=== PATIENT | female | born 1985 | race Caucasian/White ===

== ENCOUNTER 2016-09-16 09:00 | Emergency (ER) | payer OTHER ==
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
[2016-09-16] MEDS ORDERED: BUTALB/APAP/CAFF 50-325-40MG TAB PO STA (10:49)
[2016-09-16 11:37] VITALS: BP 121/56; PULSE 72; RESP 18; TEMP 98
== END 2016-09-16 11:39 | disposition home or self-care (01) ==
LOC: EC 09:00
DX: S06.0X9A Concussion with loss of consciousness of unspecified duration, initial encounter (principal); Y04.8XXA Assault by other bodily force, initial encounter; M79.7 Fibromyalgia; F41.9 Anxiety disorder, unspecified; F32.9 Major depressive disorder, single episode, unspecified; Z79.899 Other long term (current) drug therapy; Z88.5 Allergy status to narcotic agent; F43.10 Post-traumatic stress disorder, unspecified; F17.200 Nicotine dependence, unspecified, uncomplicated
CPT/HCPCS: 70450; 70486; 99283

== ENCOUNTER 2017-03-12 11:23 | Emergency (ER) | payer OTHER ==
[2017-03-12 11:33] VITALS: BP 139/64; PULSE 83; RESP 20; TEMP 98.1
[2017-03-12] MEDS ORDERED: IBUPROFEN 600 MG TAB PO STA (11:55)
--- NOTE | 2017-03-12 11:58 | ED ---
Wound/Laceration HPI - General Chief Complaint: Wound/Laceration Stated Complaint: laceration Time Seen by Provider: 03/12/17 11:51 Source: patient, RN notes reviewed Mode of arrival: ambulatory Limitations: no limitations - History of Present Illness Initial Comments: 31 yo female presents emergency Department chief complaint of right middle finger laceration. Patient states she cut herself yesterday on a punch box tender. Patient states she surgery on her tetanus. Patient states that she has having pain to the finger today she is wondering if she can get something for the pain. Patient states she tried Motrin this morning and it did not seem to improve her symptoms. Patient denies any fever chills cough cold Raynaud's with this. Patient denies any nausea vomiting. Patient denies any other injury from the incident. Patient denies any recent fever, chills, shortness of breath, chest pain, back pain, abdominal pain, nausea vomiting, numbness or tingling, dysuria or hematuria, constipation or diarrhea, headaches or visual changes, or any other current symptoms. - Related Data Home Medications Medication Instructions Recorded Confirmed Metoprolol Tartrate [Lopressor] 50 mg PO BID 03/12/17 03/12/17 PARoxetine HCL [Paxil] 40 mg PO DAILY 03/12/17 03/12/17 Previous Rx's Medication Instructions Recorded Ibuprofen [Motrin] 600 mg PO Q6HR PRN #20 tab 03/12/17 Allergies Allergy/AdvReac Type Severity Reaction Status Date / Time bee pollen Allergy Severe Swelling Verified 03/12/17 11:52 tramadol Allergy Unknown Verified 03/12/17 11:52 Review of Systems ROS Statement: Those systems with pertinent positive or pertinent negative responses have been documented in the HPI. ROS Other: All systems not noted in ROS Statement are negative. Past Medical History Past Medical History: Fibromyalgia, Seizure Disorder History of Any Multi-Drug Resistant Organisms: None Reported Past Surgical History: Section, Hysterectomy, Tubal Ligation Past Psychological History: Anxiety, Depression, PTSD Smoking Status: Former smoker Past Alcohol Use History: None Reported Past Drug Use History: None Reported General Exam - General Exam Comments Initial Comments: General: The patient is awake and alert, in no distress, and does not appear acutely ill. Neck: The neck is supple, there is no tenderness./ Cardiovascular: There is a regular rate and rhythm. No murmur, rub or gallop is appreciated. Respiratory: Lungs are clear to auscultation, respirations are non-labored, breath sounds are equal. No wheezes, stridor, rales, or rhonchi. Musculoskeletal: Sensation intact with 2+ pulses throughout the right upper extremity. Full Range of motion of right hand and right wrist. Less than 2 capillary refill. Patient has a 1 cm superficial laceration to the middle finger on the right hand. No sign of infection. Animal swelling Neurological: CN II-XII intact, There are no obvious motor or sensory deficits. Coordination appears grossly intact. Speech is normal. Skin: Skin is warm and dry and no rashes or lesions are noted. Psychiatric: Normal mood and affect. Limitations: no limitations Course Vital Signs 03/12/17 11:31 Temperature 98.1 F Pulse Rate 83 Respiratory 20 Rate Blood Pressure 139/64 O2 Sat by Pulse 98 Oximetry Medical Decision Making - Medical Decision Making 31-year-old female presents for right hand injury. At this time we discussed cleaning the care. We discussed with the follow-up questions. Patient stated that she understood and she does agree to the plan. This time she will be discharged home. Disposition Clinical Impression: Laceration of right middle finger Disposition: HOME SELF-CARE Condition: Stable Instructions: Laceration (ED) Additional Instructions: Please use medication as discussed. Please follow up with family doctor if symptoms have not improved over the next two days. Please return to the emergency room if your symptoms increase or worsen or for any other concerns. Prescriptions: Ibuprofen [Motrin] 600 mg PO Q6HR PRN #20 tab PRN Reason: Pain Referrals: Anna Cortes MD [Primary Care Provider] - 1-2 days Time of Disposition: 11:58
== END 2017-03-12 12:09 | disposition home or self-care (01) ==
LOC: EC 11:23
DX: S61.212A Laceration without foreign body of right middle finger without damage to nail, initial encounter (principal); F32.9 Major depressive disorder, single episode, unspecified; F41.9 Anxiety disorder, unspecified; Z87.891 Personal history of nicotine dependence; Z79.899 Other long term (current) drug therapy; Z88.6 Allergy status to analgesic agent; Z91.030 Bee allergy status; W26.8XXA Contact with other sharp object(s), not elsewhere classified, initial encounter
CPT/HCPCS: 99282

== ENCOUNTER 2017-04-19 12:22 | Emergency (ER) | payer OTHER ==
[2017-04-19 12:59] VITALS: RESP 18
--- NOTE | 2017-04-19 13:16 | ED ---
General Adult HPI - General Chief complaint: Abdominal Pain Stated complaint: Abd/Back Pain Time Seen by Provider: 04/19/17 13:00 Source: patient, RN notes reviewed Mode of arrival: ambulatory Limitations: no limitations - History of Present Illness Initial comments: This is a 31-year-old female who presents emergency Department complaining that she has lower back pain and some burning with urination. Patient states she has had kidney stones in the past. Patient states started a couple days ago. Patient denies any blood in her urine. Patient denies any upper back pain. Patient denies any abdominal pain she denies any nausea vomiting or diarrhea. Patient denies any fever or chills. - Related Data Home Medications Medication Instructions Recorded Confirmed Metoprolol Tartrate [Lopressor] 50 mg PO BID 03/12/17 04/19/17 PARoxetine HCL [Paxil] 40 mg PO DAILY 03/12/17 04/19/17 clonazePAM [KlonoPIN] 1 mg PO DAILY 04/19/17 04/19/17 Allergies Allergy/AdvReac Type Severity Reaction Status Date / Time bee pollen Allergy Severe Swelling Verified 04/19/17 13:12 tramadol Allergy Unknown Verified 04/19/17 13:12 Review of Systems ROS Statement: Those systems with pertinent positive or pertinent negative responses have been documented in the HPI. ROS Other: All systems not noted in ROS Statement are negative. Past Medical History Past Medical History: Fibromyalgia, Seizure Disorder Additional Past Medical History / Comment(s): kidney stones History of Any Multi-Drug Resistant Organisms: None Reported Past Surgical History: Section, Hysterectomy, Tubal Ligation Past Psychological History: Anxiety, Depression, PTSD Smoking Status: Former smoker Past Alcohol Use History: None Reported Past Drug Use History: None Reported General Exam - General Exam Comments Initial Comments: GENERAL: Patient is well-developed and well-nourished. Patient is nontoxic and well- hydrated and is in mild distress. ENT: Neck is soft and supple. No significant lymphadenopathy is noted. Oropharynx is clear. Moist mucous membranes. Neck has full range of motion without eliciting any pain. EYES: The sclera were anicteric and conjunctiva were pink and moist. Extraocular movements were intact and pupils were equal round and reactive to light. Eyelids were unremarkable. PULMONARY: Unlabored respirations. Good breath sounds bilaterally. No audible rales rhonchi or wheezing was noted. CARDIOVASCULAR: There is a regular rate and rhythm without any murmurs gallops or rubs. ABDOMEN: Soft and nontender with normal bowel sounds. No palpable organomegaly was noted. There is no palpable pulsatile mass. SKIN: Skin is clear with no lesions or rashes and otherwise unremarkable. NEUROLOGIC: Patient is alert and oriented x3. Cranial nerves II through XII are grossly intact. Motor and sensory are also intact. Normal speech, volume and content. Symmetrical smile. MUSCULOSKELETAL: Normal extremities with adequate strength and full range of motion. No lower extremity swelling or edema. No calf tenderness. LYMPHATICS: No significant lymphadenopathy is noted PSYCHIATRIC: Normal psychiatric evaluation. Normal interpersonal interactions appears functionally intact in deals appropriately with others. No signs of depression. No signs of anxiety. Limitations: no limitations Course Vital Signs 04/19/17 12:56 Temperature 98.6 F Pulse Rate 73 Respiratory 18 Rate Blood Pressure 113/68 O2 Sat by Pulse 97 Oximetry Medical Decision Making - Medical Decision Making The patient was sleeping when I awoke her she still complaining of lower back pain - Lab Data Lab Results 04/19/17 Range/Units 13:24 Urine Color Yellow Urine Appearance Cloudy H (Clear) Urine pH 8.0 (5.0-8.0) Ur Specific [place] 1.013 (1.001-1.035) Urine Protein Trace H (Negative) Urine Glucose (UA) Negative (Negative) Urine Ketones Negative (Negative) Urine Blood Negative (Negative) Urine Nitrite Negative (Negative) Urine Bilirubin Negative (Negative) Urine Urobilinogen <2.0 (<2.0) mg/dL Ur Leukocyte Esterase Negative (Negative) Urine RBC 1 (0-5) /hpf Urine WBC 10 H (0-5) /hpf Ur Squamous Epith Cells 17 H (0-4) /hpf Urine Bacteria Occasional H (None) /hpf Urine Mucus Rare H (None) /hpf Disposition Clinical Impression: Lower back pain Disposition: HOME SELF-CARE Condition: Good Instructions: Back Pain (ED) Referrals: Anna Cortes MD [Primary Care Provider] - 1-2 days Time of Disposition: 14:09
[2017-04-19 13:58] LABS: Appearance,Urine Cloudy (Clear); Bacteria,Urine Occasional /hpf; Bilirubin,Urine Negative (Negative); Glucose,Urine (UA) Negative (Negative); Ketones,Urine Negative (Negative); Leukocyte Esterase,Urine Negative (Negative); Mucus,Urine Rare /hpf; Nitrite,Urine Negative (Negative); Particle Count 31755; Protein,Urine Trace (Negative); RBC,Urine 1 /hpf (0-5); Specific Gravity,Urine 1.013 (1.001-1.035); Squamous Epithelial Cell,Urine 17 /hpf (0-4); UA Billing (MACRO vs. MICRO) MICRO; Urobilinogen,Urine <2.0 mg/dL (<2.0); WBC,Urine 10 /hpf (0-5)
[2017-04-19] MEDS ORDERED: KETOROLAC 60 MG/2 ML VIAL IM STA (14:11)
[2017-04-19 14:22] VITALS: BP 107/68; PULSE 71; TEMP 98
== END 2017-04-19 14:20 | disposition home or self-care (01) ==
LOC: EC 12:22
DX: M54.5 Low back pain (principal); G40.909 Epilepsy, unspecified, not intractable, without status epilepticus; F41.9 Anxiety disorder, unspecified; F32.9 Major depressive disorder, single episode, unspecified; F43.10 Post-traumatic stress disorder, unspecified; Z87.442 Personal history of urinary calculi; Z87.891 Personal history of nicotine dependence; Z91.018 Allergy to other foods; Z88.6 Allergy status to analgesic agent; Z79.899 Other long term (current) drug therapy
CPT/HCPCS: 81001; 99284; 96372; J1885

== ENCOUNTER 2017-09-22 19:39 | Emergency (ER) | payer OTHER ==
[2017-09-22 19:50] VITALS: BP 125/78; PULSE 95; RESP 20; TEMP 97.3
--- NOTE | 2017-09-22 20:10 | ED ---
General Adult HPI - General Chief complaint: Back Pain/Injury Stated complaint: Fall Time Seen by Provider: 09/22/17 19:52 Source: patient, RN notes reviewed Mode of arrival: ambulatory Limitations: no limitations - History of Present Illness Initial comments: 31 yo female presents to ER with a chief complaint of tailbone pain. Patient tripped and fell and the ice yesterday. She took Motrin she states she is able to get up and walk and move that if she sits on her bottom hurts worse. Patient denies any head injury. She denies any fever or chills. She states that she was concerned due to the continued pain so she thought that she should be seen. Patient denied any other symptoms at this time.Patient denies any recent fever, chills, shortness of breath, chest pain, back pain, abdominal pain , nausea vomiting, numbness or tingling, dysuria or hematuria, constipation or diarrhea, headaches or visual changes, or any other current symptoms. - Related Data Home Medications Medication Instructions Recorded Confirmed Metoprolol Tartrate [Lopressor] 50 mg PO BID 03/12/17 08/19/17 PARoxetine HCL [Paxil] 40 mg PO DAILY 03/12/17 08/19/17 [place] Carbonate [[place] 450 mg PO DAILY 07/03/17 08/19/17 Carbonate ER] Phenytoin Sodium Extended 100 mg PO TID 07/03/17 08/19/17 [Dilantin] Acetaminophen Tab [Tylenol Tab] 650 mg PO Q4H PRN 08/19/17 08/19/17 Gabapentin 800 mg PO TID 08/19/17 08/19/17 Ibuprofen [Motrin] 600 mg PO Q6HR PRN 08/19/17 08/19/17 Previous Rx's Medication Instructions Recorded Ibuprofen [Motrin] 800 mg PO Q6HR #30 tab 08/19/17 Hydrocodone/Acetaminophen [[place] 1 each PO Q6HR PRN #20 tab 09/22/17 5-325] Allergies Allergy/AdvReac Type Severity Reaction Status Date / Time bee pollen Allergy Severe Swelling Verified 09/22/17 19:50 venom-honey bee Allergy Swelling Verified 09/22/17 19:50 iodine AdvReac Rapid Verified 09/22/17 19:50 Heart Rate tramadol AdvReac INDUCES Verified 09/22/17 19:50 Review of Systems ROS Statement: Those systems with pertinent positive or pertinent negative responses have been documented in the HPI. ROS Other: All systems not noted in ROS Statement are negative. Past Medical History Past Medical History: Fibromyalgia, Seizure Disorder Additional Past Medical History / Comment(s): kidney stones History of Any Multi-Drug Resistant Organisms: None Reported Past Surgical History: Section, Hysterectomy, Tubal Ligation Past Psychological History: Anxiety, Depression, PTSD Smoking Status: Former smoker Past Alcohol Use History: None Reported Past Drug Use History: None Reported General Exam Limitations: no limitations General appearance: alert, in no apparent distress Head exam: Present: atraumatic, normocephalic, normal inspection Neck exam: Present: normal inspection. Absent: tenderness, meningismus, lymphadenopathy Respiratory exam: Present: normal lung sounds bilaterally. Absent: respiratory distress, wheezes, rales, rhonchi, stridor Cardiovascular Exam: Present: regular rate, normal rhythm, normal heart sounds. Absent: systolic murmur, diastolic murmur, rubs, gallop, clicks Extremities exam: Present: normal inspection, full ROM, normal capillary refill. Absent: tenderness, pedal edema, joint swelling, calf tenderness Back exam: Present: normal inspection, full ROM, tenderness (over the sacrum). Absent: paraspinal tenderness, vertebral tenderness, rash noted Neurological exam: Present: alert, oriented X3 Psychiatric exam: Present: normal affect, normal mood Skin exam: Present: warm, dry, intact, normal color. Absent: rash Course Vital Signs 09/22/17 19:48 Temperature 97.3 F L Pulse Rate 95 Respiratory 20 Rate Blood Pressure 125/78 O2 Sat by Pulse 99 Oximetry Medical Decision Making - Medical Decision Making 31-year-old female presents to the emergency department with chief complaint of tailbone pain. At this time x-rays reviewed that does show a fracture. At this time we did discuss follow-up. We discussed return parameters all questions and senior living. Patient stated she understood and she is agreement plan. She will be discharged. - Radiology Data Radiology results: report reviewed, image reviewed Disposition Clinical Impression: Sacral fracture, closed Disposition: HOME SELF-CARE Condition: Stable Instructions: Sacral Fracture (ED) Additional Instructions: Please use medication as discussed. Please follow up with family doctor if symptoms have not improved over the next two days. Please return to the emergency room if your symptoms increase or worsen or for any other concerns. Prescriptions: Hydrocodone/Acetaminophen [[place] 5-325] 1 each PO Q6HR PRN #20 tab PRN Reason: Pain Referrals: Anna Cortes MD [Primary Care Provider] - 1-2 days Time of Disposition: 20:45
[2017-09-22] MEDS ORDERED: HYDROcodone/APAP 5-325MG 1 EACH TAB PO STA (20:33)
--- NOTE | 2017-09-22 20:41 | XR ---
EXAMINATION TYPE: XR sacrum coccyx DATE OF EXAM: 09/22/2017 COMPARISON: NONE HISTORY: Pain TECHNIQUE: 3 views FINDINGS: There is a fracture at the sacrococcygeal junction. There is 1 cm anterior displacement of the distal fragment. The sacroiliac joints appear normal. IMPRESSION: Acute mildly displaced fracture at the sacrococcygeal junction.
== END 2017-09-22 20:51 | disposition home or self-care (01) ==
LOC: EC 19:39
DX: S32.10XA Unspecified fracture of sacrum, initial encounter for closed fracture (principal); G40.909 Epilepsy, unspecified, not intractable, without status epilepticus; F32.9 Major depressive disorder, single episode, unspecified; F41.9 Anxiety disorder, unspecified; Z87.891 Personal history of nicotine dependence; Z79.899 Other long term (current) drug therapy; Z91.030 Bee allergy status; Z88.6 Allergy status to analgesic agent; Z88.8 Allergy status to other drugs, medicaments and biological substances; W00.0XXA Fall on same level due to ice and snow, initial encounter; Y92.89 Other specified places as the place of occurrence of the external cause
CPT/HCPCS: 72220; 99283

== ENCOUNTER 2017-10-14 08:21 | Emergency (ER) | payer OTHER ==
[2017-10-14 08:28] VITALS: BP 131/92; PULSE 95; RESP 18; TEMP 98
--- NOTE | 2017-10-14 08:43 | ED ---
General Adult HPI - General Chief complaint: Back Pain/Injury Stated complaint: Tailbone pain Time Seen by Provider: 10/14/17 08:36 Source: patient, RN notes reviewed Mode of arrival: ambulatory Limitations: no limitations - History of Present Illness Initial comments: Patient is a pleasant 32-year-old female presenting to the emergency Department with sacral pain. Patient does have a history of fall and fracture. 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 Patient requests Tylenol 3 for discomfort. No weakness. No loss of sensation. No loss of control of bowel or bladder. No other area of concern. - Related Data Home Medications Medication Instructions Recorded Confirmed Metoprolol Tartrate [Lopressor] 50 mg PO BID 03/12/17 08/19/17 PARoxetine HCL [Paxil] 40 mg PO DAILY 03/12/17 08/19/17 [place] Carbonate [[place] 450 mg PO DAILY 07/03/17 08/19/17 Carbonate ER] Phenytoin Sodium Extended 100 mg PO TID 07/03/17 08/19/17 [Dilantin] Acetaminophen Tab [Tylenol Tab] 650 mg PO Q4H PRN 08/19/17 08/19/17 Gabapentin 800 mg PO TID 08/19/17 08/19/17 Ibuprofen [Motrin] 600 mg PO Q6HR PRN 08/19/17 08/19/17 Previous Rx's Medication Instructions Recorded Ibuprofen [Motrin] 800 mg PO Q6HR #30 tab 08/19/17 Hydrocodone/Acetaminophen [[place] 1 each PO Q6HR PRN #20 tab 09/22/17 5-325] Acetaminophen-Codeine 300-30mg 2 each PO Q6H PRN #15 tablet 10/14/17 [Tylenol #3] Allergies Allergy/AdvReac Type Severity Reaction Status Date / Time bee pollen Allergy Severe Swelling Verified 10/14/17 08:28 venom-honey bee Allergy Swelling Verified 10/14/17 08:28 iodine AdvReac Rapid Verified 10/14/17 08:28 Heart Rate tramadol AdvReac INDUCES Verified 10/14/17 08:28 Review of Systems ROS Statement: Those systems with pertinent positive or pertinent negative responses have been documented in the HPI. ROS Other: All systems not noted in ROS Statement are negative. Constitutional: Denies: fever Eyes: Denies: eye pain ENT: Denies: ear pain Respiratory: Denies: cough Cardiovascular: Denies: chest pain Endocrine: Denies: fatigue Gastrointestinal: Denies: abdominal pain Genitourinary: Denies: dysuria Musculoskeletal: Reports: other (Tailbone pain) Skin: Denies: rash Neurological: Denies: weakness Past Medical History Past Medical History: Fibromyalgia, Seizure Disorder Additional Past Medical History / Comment(s): kidney stones History of Any Multi-Drug Resistant Organisms: None Reported Past Surgical History: Section, Hysterectomy, Tubal Ligation Past Psychological History: Anxiety, Depression, PTSD Smoking Status: Former smoker Past Alcohol Use History: None Reported Past Drug Use History: None Reported General Exam Limitations: no limitations General appearance: alert, in no apparent distress Head exam: Present: atraumatic Eye exam: Present: normal appearance Respiratory exam: Present: normal lung sounds bilaterally Cardiovascular Exam: Present: regular rate, normal rhythm GI/Abdominal exam: Present: soft. Absent: tenderness Extremities exam: Present: normal inspection Back exam: Present: other (Tenderness over the lower sacrum.) Neurological exam: Present: alert. Absent: motor sensory deficit Psychiatric exam: Present: normal affect, normal mood Skin exam: Present: normal color Course Vital Signs 10/14/17 08:25 Temperature 98.0 F Pulse Rate 95 Respiratory 18 Rate Blood Pressure 131/92 O2 Sat by Pulse 99 Oximetry Disposition Clinical Impression: Sacral pain Disposition: HOME SELF-CARE Condition: Stable Instructions: Sacral Fracture (ED) Additional Instructions: Please follow-up to in the next day or 2 for recheck. Return for increased pain, weakness, loss of sensation, loss of control of bowel or bladder, worsening symptoms or other concerns. Prescriptions: Acetaminophen-Codeine 300-30mg [Tylenol #3] 2 each PO Q6H PRN #15 tablet PRN Reason: Pain Referrals: Anna Cortes MD [Primary Care Provider] - 1-2 days Time of Disposition: 08:43
== END 2017-10-14 08:54 | disposition home or self-care (01) ==
LOC: EC 08:21
DX: M53.3 Sacrococcygeal disorders, not elsewhere classified (principal); G40.909 Epilepsy, unspecified, not intractable, without status epilepticus; F32.9 Major depressive disorder, single episode, unspecified; F41.9 Anxiety disorder, unspecified; F43.10 Post-traumatic stress disorder, unspecified; Z87.891 Personal history of nicotine dependence; Z79.899 Other long term (current) drug therapy; Z91.030 Bee allergy status; Z88.6 Allergy status to analgesic agent; Z88.8 Allergy status to other drugs, medicaments and biological substances
CPT/HCPCS: 99283

== ENCOUNTER 2017-10-20 09:07 | Emergency (ER) | payer OTHER ==
[2017-10-20 09:15] VITALS: BP 128/73; PULSE 83; RESP 18; TEMP 97.5
--- NOTE | 2017-10-20 09:58 | ED ---
General Adult HPI - General Chief complaint: Fall Stated complaint: FALL, BACK/REAR END PAIN Time Seen by Provider: 10/20/17 09:32 Source: patient, RN notes reviewed Mode of arrival: ambulatory Limitations: no limitations - History of Present Illness Initial comments: 32-year-old female presents to the emergency department with a chief complaint of slip and fall. Patient states she broke her tailbone about one month ago and she had another slip and fall today onto her bottom. Patient does admit to some low back pain and terrible pain with this. She denies any loss of bowel or bladder control. She denies any saddle anesthesia. She states that she otherwise is feeling well. They were concerned due to her new pain after the fall that she thought that she should be seen. Patient states she follow-up for or so regarding the fall and they stated there is no procedure that they can do. They deny any other symptoms at this time.Patient denies any recent fever, chills, shortness of breath, chest pain, back pain, abdominal pain, nausea vomiting, numbness or tingling, dysuria or hematuria, constipation or diarrhea, headaches or visual changes, or any other current symptoms. - Related Data Home Medications Medication Instructions Recorded Confirmed Metoprolol Tartrate [Lopressor] 50 mg PO BID 03/12/17 10/20/17 PARoxetine HCL [Paxil] 40 mg PO DAILY 03/12/17 10/20/17 [place] Carbonate [[place] 450 mg PO DAILY 07/03/17 10/20/17 Carbonate ER] Phenytoin Sodium Extended 100 mg PO TID 07/03/17 10/20/17 [Dilantin] Acetaminophen Tab [Tylenol Tab] 650 mg PO Q4H PRN 08/19/17 10/20/17 Gabapentin 800 mg PO TID 08/19/17 10/20/17 Ibuprofen 800 mg PO Q6H PRN 10/14/17 10/20/17 clonazePAM [KlonoPIN] 1 mg PO DAILY PRN 10/14/17 10/20/17 Acetaminophen-Codeine 300-30mg 2 tab PO Q6H PRN 10/20/17 10/20/17 [Tylenol #3] Previous Rx's Medication Instructions Recorded Hydrocodone/Acetaminophen [[place] 1 each PO Q6HR PRN #10 tab 10/20/17 5-325] Allergies Allergy/AdvReac Type Severity Reaction Status Date / Time bee pollen Allergy Severe Swelling Verified 10/20/17 09:38 venom-honey bee Allergy Swelling Verified 10/20/17 09:38 iodine AdvReac Rapid Verified 10/20/17 09:38 Heart Rate tramadol AdvReac INDUCES Verified 10/20/17 09:38 Review of Systems ROS Statement: Those systems with pertinent positive or pertinent negative responses have been documented in the HPI. ROS Other: All systems not noted in ROS Statement are negative. Past Medical History Past Medical History: Fibromyalgia, Seizure Disorder Additional Past Medical History / Comment(s): kidney stones History of Any Multi-Drug Resistant Organisms: None Reported Past Surgical History: Section, Hysterectomy, Tubal Ligation Past Psychological History: Anxiety, Depression, PTSD Smoking Status: Former smoker Past Alcohol Use History: None Reported Past Drug Use History: None Reported General Exam - General Exam Comments Initial Comments: General: The patient is awake and alert, in no distress, and does not appear acutely ill. Eye: Pupils are equal. Ears, nose, mouth and throat: There are moist mucous membranes. Neck: The neck is supple, there is no tenderness . Cardiovascular: There is a regular rate and rhythm. No murmur, rub or gallop is appreciated. Respiratory: Lungs are clear to auscultation, respirations are non-labored, breath sounds are equal. No wheezes, stridor, rales, or rhonchi. Back: There is no tenderness to palpation in the midline thoracic spine. Some tenderness in the lumbar and over the sacrum.. There is no obvious deformity. No rashes noted. Musculoskeletal: Normal ROM, no tenderness, There is no pedal edema. There is no calf tenderness or swelling. Sensation intact. Pulses equal bilaterally 2+. Neurological: CN II-XII intact, There are no obvious motor or sensory deficits. Coordination appears grossly intact. Speech is normal. Skin: Skin is warm and dry and no rashes or lesions are noted. Psychiatric: Cooperative, appropriate mood & affect, normal judgment. Limitations: no limitations Course Vital Signs 10/20/17 09:12 Temperature 97.5 F L Pulse Rate 83 Respiratory 18 Rate Blood Pressure 128/73 O2 Sat by Pulse 97 Oximetry Medical Decision Making - Medical Decision Making 32-year-old female presents for fall with back pain and sacral pain. At this time x-rays reviewed. At this time patient continues to have a fracture present. Unknown if there is a new injury or not. This and we will continue pain medication we discussed continued follow-up. We discussed return parameters all questions. Patient family stated they are in agreement with management of this plan. All questions have been answered. They will be discharged. - Radiology Data Radiology results: report reviewed, image reviewed Disposition Clinical Impression: Fall, Closed coccygeal fracture, Sacral pain Disposition: HOME SELF-CARE Condition: Stable Instructions: Sacral Fracture (ED) Additional Instructions: Please use medication as discussed. Please follow up with family doctor if symptoms have not improved over the next two days. Please return to the emergency room if your symptoms increase or worsen or for any other concerns. Prescriptions: Hydrocodone/Acetaminophen [[place] 5-325] 1 each PO Q6HR PRN #10 tab PRN Reason: Pain Referrals: Anna Cortes MD [Primary Care Provider] - 1-2 days Time of Disposition: 10:17
--- NOTE | 2017-10-20 10:08 | XR ---
EXAM TYPE: LUMBAR SPINE X RAY SERIES COMPARISON: NONE HISTORY: Pain TECHNIQUE: 4 views are submitted. FINDINGS: Alignment is anatomic. The pedicles are intact. The transverse processes are intact. There is no s pondylolysis or spondylolisthesis. Mild hypertrophic change at the thoracolumbar junction. There is marked deformity of the sacrococcygeal levels suspicious for fracture. IMPRESSION: 1. Marked deformity and displacement the osseous structures of the sacrococcygeal junction suspicious for fracture.
--- NOTE | 2017-10-20 10:09 | XR ---
EXAMINATION TYPE: XR sacrum coccyx DATE OF EXAM: 10/20/2017 COMPARISON: NONE HISTORY: Pain Three views are submitted. Sacrum is intact. SI joints are symmetric. Osteitis pubis condensans not ed. Calcification along the acetabulum bilaterally likely related to chronic labral tear. There is di splacement of the coccyx compatible with fracture. IMPRESSION: 1. Findings are compatible with coccygeal fracture with anterior displacement of the distal segments.
== END 2017-10-20 10:29 | disposition home or self-care (01) ==
LOC: EC 09:07
DX: S32.2XXA Fracture of coccyx, initial encounter for closed fracture (principal); M79.7 Fibromyalgia; G40.909 Epilepsy, unspecified, not intractable, without status epilepticus; F32.9 Major depressive disorder, single episode, unspecified; F41.9 Anxiety disorder, unspecified; F43.10 Post-traumatic stress disorder, unspecified; Z87.891 Personal history of nicotine dependence; Z91.048 Other nonmedicinal substance allergy status; Z88.6 Allergy status to analgesic agent; Z91.030 Bee allergy status; Z91.018 Allergy to other foods; Z79.899 Other long term (current) drug therapy; W01.0XXA Fall on same level from slipping, tripping and stumbling without subsequent striking against object, initial encounter
CPT/HCPCS: 72100; 72220; 99283

== ENCOUNTER 2018-01-14 14:36 | Emergency (ER) | payer OTHER ==
[2018-01-14 14:53] VITALS: BP 131/60; PULSE 110; RESP 18; TEMP 98.6
[2018-01-14] MEDS ORDERED: PROPARACAINE 0.5% OPHTH DROPS 15 ML BTL RIGHT EYE STA (15:13)
--- NOTE | 2018-01-14 15:16 | ED ---
General Adult HPI - General Chief complaint: Psychiatric Symptoms Stated complaint: Rt eye Irritation Time Seen by Provider: 01/14/18 14:49 Source: patient, RN notes reviewed Mode of arrival: ambulatory Limitations: no limitations - History of Present Illness Initial comments: 32-year-old female presenting with right eye irritation. Patient was in court yesterday regarding custody of her children who are out of state. She states she cried a lot and was wearing makeup. She developed some puffiness in her right eye as well as some mild pain and irritation. Denies any foreign body sensation. Denies cough or URI symptoms. Denies any other issues with her left eye. No vision changes. Patient also is suicidal secondary to her issue with her children. She states she attempted to step in front of a truck. There is no injury, she was not struck. She has been feeling suicidal and plans to "jump in front of a truck". - Related Data Home Medications Medication Instructions Recorded Confirmed Metoprolol Tartrate [Lopressor] 50 mg PO BID 03/12/17 01/14/18 PARoxetine HCL [Paxil] 40 mg PO DAILY 03/12/17 01/14/18 [place] Carbonate [[place] 450 mg PO BID 07/03/17 01/14/18 Carbonate ER] Gabapentin 800 mg PO TID 08/19/17 01/14/18 Previous Rx's Medication Instructions Recorded Ciprofloxacin Ophth Soln [Cipro 1 drops RIGHT EYE Q4HR #1 bottle 01/14/18 0.3% Ophth Soln] Allergies Allergy/AdvReac Type Severity Reaction Status Date / Time bee pollen Allergy Severe Swelling Verified 01/14/18 14:54 venom-honey bee Allergy Swelling Verified 01/14/18 14:54 iodine AdvReac Rapid Verified 01/14/18 14:54 Heart Rate tramadol AdvReac INDUCES Verified 01/14/18 14:54 Review of Systems ROS Statement: Those systems with pertinent positive or pertinent negative responses have been documented in the HPI. ROS Other: All systems not noted in ROS Statement are negative. Past Medical History Past Medical History: Fibromyalgia, Seizure Disorder Additional Past Medical History / Comment(s): kidney stones History of Any Multi-Drug Resistant Organisms: None Reported Past Surgical History: Section, Hysterectomy, Tubal Ligation Past Psychological History: Anxiety, Depression, PTSD Smoking Status: Current every day smoker Past Alcohol Use History: None Reported Past Drug Use History: Marijuana General Exam Limitations: no limitations General appearance: alert, in no apparent distress Head exam: Present: atraumatic, normocephalic Eye exam: Present: normal appearance, PERRL, EOMI, conjunctival injection, other (Fluorescein does reveal a linear abrasion over the cornea.) ENT exam: Present: normal exam. Absent: normal oropharynx, mucous membranes dry Neck exam: Present: normal inspection. Absent: tenderness, meningismus Respiratory exam: Present: normal lung sounds bilaterally. Absent: respiratory distress, wheezes Cardiovascular Exam: Present: regular rate, normal rhythm GI/Abdominal exam: Present: soft. Absent: distended, tenderness, guarding Rectal exam: Present: deferred Extremities exam: Present: normal inspection, normal capillary refill. Absent: pedal edema Neurological exam: Present: alert, oriented X3, CN II-XII intact Psychiatric exam: Present: depressed, suicidal ideation Skin exam: Present: warm, dry, intact. Absent: cyanosis, diaphoretic Course Vital Signs 01/14/18 14:51 Temperature 98.6 F Pulse Rate 110 H Respiratory 18 Rate Blood Pressure 131/60 O2 Sat by Pulse 98 Oximetry - Reevaluation(s) Reevaluation #1: 01/14/18 15:26 Patient here with complaint of suicidal ideation and right eye irritation. Right eye does have a corneal abrasion. Patient is given ciprofloxacin drops in the emergency department. She will take this medication home and continue treatment of corneal abrasion. Medical Decision Making - Medical Decision Making 32-year-old female presenting with eye irritation, found to have corneal abrasion. Second issue was suicidal ideation. She was evaluated by [facility], they recommend outpatient follow-up at this time. Appointments were made and the patient has a safety plan. I did reevaluate the patient after many mental health and she denies suicidal ideation or plan. She is comfortable with discharge. She will follow up as recommended. She will also take her eyedrops for corneal abrasion as instructed. - Lab Data Lab Results 01/14/18 Range/Units 15:21 Urine Opiates Screen Not Detected (NotDetected) Ur Oxycodone Screen Not Detected (NotDetected) Urine Methadone Screen Not Detected (NotDetected) Ur Propoxyphene Screen Not Detected (NotDetected) Ur Barbiturates Screen Not Detected (NotDetected) U Tricyclic Antidepress Not Detected (NotDetected) Ur Phencyclidine Scrn Not Detected (NotDetected) Ur Amphetamines Screen Not Detected (NotDetected) U Methamphetamines Scrn Not Detected (NotDetected) U Benzodiazepines Scrn Detected H (NotDetected) Urine Cocaine Screen Not Detected (NotDetected) U Marijuana (THC) Screen Detected H (NotDetected) Disposition Clinical Impression: Corneal abrasion, right, Depression Disposition: HOME SELF-CARE Condition: Good Instructions: Depression (ED), Corneal Abrasion (ED) Additional Instructions: Please follow up with community mental health. Prescriptions: Ciprofloxacin Ophth Soln [Cipro 0.3% Ophth Soln] 1 drops RIGHT EYE Q4HR #1 bottle Is patient prescribed a controlled substance at d/c from ED?: No Referrals: Anna Cortes MD [Primary Care Provider] - 1-2 days Belinda Clancy MD [STAFF PHYSICIAN] - 1-2 days Time of Disposition: 18:18
[2018-01-14] MEDS ORDERED: CIPROFLOXACIN 0.3% OPHTH SOLN 5 ML BTL RIGHT EYE STA (15:27)
[2018-01-14 16:00] LABS: Amphetamine Screen,Urine Not Detected (NotDetected); Barbiturate Screen,Urine Not Detected (NotDetected); Benzodiazepines Screen,Urine Detected (NotDetected); Cocaine Screen,Urine Not Detected (NotDetected); Methadone Screen, Urine Not Detected (NotDetected); Opiate Screen,Urine Not Detected (NotDetected); Oxycodone Screen, Urine Not Detected (NotDetected); Phencyclidine Screen,Urine Not Detected (NotDetected); Tricyclic Antidepressant,Urine Not Detected (NotDetected); Urn Cannabinoid Scrn Detected (NotDetected)
[2018-01-14] MEDS ORDERED: DIPH,PERTUS(ACELL)TETVAC-LF 0.5 ML VIAL IM ONE (18:17)
== END 2018-01-14 18:35 | disposition home or self-care (01) ==
LOC: EC 14:36
DX: S05.01XA Injury of conjunctiva and corneal abrasion without foreign body, right eye, initial encounter (principal); F32.9 Major depressive disorder, single episode, unspecified; R45.851 Suicidal ideations; M79.7 Fibromyalgia; G40.909 Epilepsy, unspecified, not intractable, without status epilepticus; F41.9 Anxiety disorder, unspecified; F43.10 Post-traumatic stress disorder, unspecified; F17.200 Nicotine dependence, unspecified, uncomplicated; Z79.899 Other long term (current) drug therapy; Z88.5 Allergy status to narcotic agent; Z91.030 Bee allergy status; Z91.018 Allergy to other foods; Z91.048 Other nonmedicinal substance allergy status; Z87.442 Personal history of urinary calculi; X58.XXXA Exposure to other specified factors, initial encounter
CPT/HCPCS: 80306; 82075; 99284

== ENCOUNTER 2018-06-29 12:11 | Emergency (ER) | payer OTHER ==
[2018-06-29 12:35] VITALS: BP 124/81; PULSE 91; RESP 18; TEMP 97.9
[2018-06-29] MEDS ORDERED: LIDOCAINE 1% INJ 10MG/ML (20 ML MDV) SQ STA (13:34)
--- NOTE | 2018-06-29 13:47 | ED ---
General Adult HPI - General Chief complaint: Skin/Abscess/Foreign Body Stated complaint: abcsess on abd Time Seen by Provider: 06/29/18 13:30 Source: patient, RN notes reviewed Mode of arrival: ambulatory Limitations: no limitations - History of Present Illness Initial comments: Patient 32-year-old female presented to the emergency room today with a chief complaint of abscess to the right side of the lower abdomen. Patient doesn't that started 2 weeks ago and this got worse. Denies any drainage. There is now some surrounding redness. Patient denies any other complaints or symptoms. Patient denies any recent fever, chills, shortness of breath, chest pain, back pain, constipation or diarrhea, headaches or visual changes, or any other complaints. - Related Data Home Medications Medication Instructions Recorded Confirmed Metoprolol Tartrate [Lopressor] 50 mg PO BID 03/12/17 06/29/18 PARoxetine HCL [Paxil] 40 mg PO DAILY 03/12/17 06/29/18 [place] Carbonate [[place] 450 mg PO BID 07/03/17 06/29/18 Carbonate ER] Gabapentin 800 mg PO TID 08/19/17 06/29/18 Vivitrol 380 mg IM Q28D 06/29/18 06/29/18 Previous Rx's Medication Instructions Recorded Sulfamethox-Tmp 800-160Mg [Bactrim 1 tab PO Q12HR #20 tab 06/29/18 DS 800-160 mg] Allergies Allergy/AdvReac Type Severity Reaction Status Date / Time bee pollen Allergy Severe Swelling Verified 06/29/18 13:10 venom-honey bee Allergy Swelling Verified 06/29/18 13:10 iodine AdvReac Rapid Verified 06/29/18 13:10 Heart Rate tramadol AdvReac INDUCES Verified 06/29/18 13:10 Review of Systems ROS Statement: Those systems with pertinent positive or pertinent negative responses have been documented in the HPI. ROS Other: All systems not noted in ROS Statement are negative. Past Medical History Past Medical History: Fibromyalgia, Seizure Disorder Additional Past Medical History / Comment(s): kidney stones History of Any Multi-Drug Resistant Organisms: None Reported Past Surgical History: Section, Hysterectomy, Tubal Ligation Past Psychological History: Anxiety, Depression, PTSD Smoking Status: Current every day smoker Past Alcohol Use History: None Reported Past Drug Use History: Marijuana General Exam - General Exam Comments Initial Comments: General: The patient is awake and alert, in no distress, and does not appear acutely ill. Eye: Pupils are equal, round and reactive to light. Extra-ocular movements are intact. No nystagmus. There is normal conjunctiva bilaterally. No signs of icterus. Ears, nose, mouth and throat: There are moist mucous membranes and no oral lesions. Neck: The neck is supple, there is no tenderness or JVD. Gastrointestinal: Abdomen soft on palpation. There is a small abscess to the right lower quadrant. There is locally red swollen. Local tenderness. Musculoskeletal: Normal ROM, no tenderness. Sensation intact. Strength 5/5. Pulses equal bilaterally 2+. Neurological: A&O x 3. CN II-XII intact, There are no obvious motor or sensory deficits. Coordination appears grossly intact. Speech is normal. Skin: Skin is warm and dry and no rashes or lesions are noted. Psychiatric: Cooperative, appropriate mood & affect, normal judgment. Limitations: no limitations Course Vital Signs 06/29/18 12:34 Temperature 97.9 F Pulse Rate 91 Respiratory 18 Rate Blood Pressure 124/81 O2 Sat by Pulse 97 Oximetry Procedures - Procedures Initial comment: Procedure: Incision and drainage The skin overlying the abscess was prepped with Betadine, and anesthetized with 1% lidocaine without epinephrine. A #11 scalpel was then used to incise the abscess. Some purulent material was then extracted from the lesion. Gauze dressing placed on top, The patient tolerated the procedure well. Medical Decision Making - Medical Decision Making Patient did have small abscess right side of the lower abdomen. This was drinking here in the emergency room. Small amount of purulent drainage removed. Patient tolerated procedure well. Will be started on Bactrim. Is advised to return if symptoms increase or worsen or for any other concerns. Disposition Clinical Impression: Abscess Disposition: HOME SELF-CARE Condition: Good Instructions: Abscess (ED) Additional Instructions: Please use medication as discussed. Please use warm compresses to the affected area as discussed. Please follow-up with family doctor in the next 2 days of symptoms have not improved. Please return to emergency room if the symptoms increase or worsen or for any other concerns. Prescriptions: Sulfamethox-Tmp 800-160Mg [Bactrim DS 800-160 mg] 1 tab PO Q12HR #20 tab Is patient prescribed a controlled substance at d/c from ED?: No Referrals: Anna Cortes MD [Primary Care Provider] - 1-2 days Time of Disposition: 13:48
[2018-06-29] MEDS ORDERED: SULFAMETH-TMP DS STARTER PACK 2 TAB BTL PO STA (13:48)
== END 2018-06-29 14:03 | disposition home or self-care (01) ==
LOC: EC 12:11
DX: L02.211 Cutaneous abscess of abdominal wall (principal); G40.909 Epilepsy, unspecified, not intractable, without status epilepticus; F41.9 Anxiety disorder, unspecified; F32.9 Major depressive disorder, single episode, unspecified; F17.200 Nicotine dependence, unspecified, uncomplicated; Z87.442 Personal history of urinary calculi; Z90.710 Acquired absence of both cervix and uterus; Z98.51 Tubal ligation status; Z79.899 Other long term (current) drug therapy; Z88.5 Allergy status to narcotic agent; Z91.030 Bee allergy status; Z91.048 Other nonmedicinal substance allergy status
CPT/HCPCS: 10060; 99282

== ENCOUNTER → 2019-01-01 | Outpatient (CLI) | payer OTHER ==
--- NOTE | 2019-01-01 12:43 | MM ---
Reason for exam: clinical finding. Baseline mammogram. History: Patient is postmenopausal. Indicated problem(s): lump or thickening in the left breast. Physical Findings: Nurse Summary: 2cm nodule in the left breast 7-8 o'clock (nurse mj). MG Diagnostic Mammo w CAD EARLENE Bilateral CC and MLO view(s) were taken. There are scattered fibroglandular densities. Mild inflammatory type change at BB. These results were verbally communicated with the patient and result sheet given to the patient on 01/01/19. ASSESSMENT: Incomplete: need additional imaging evaluation, BI-RAD 0 RECOMMENDATION: Ultrasound of the left breast.
--- NOTE | 2019-01-01 12:47 | USB ---
Reason for exam: additional evaluation requested from abnormal screening. History: Patient is postmenopausal. US Breast Limited LT Left limited breast ultrasound including focal area of concern, retroareolar and axilla demonstrates a 1.0 x 0.2 x 0.5cm superficial lesion at red palpable lump at 7 o'clock BB, this is in subcutaneous tissue, can be compatible with a small abscess or cellulitis. These results were verbally communicated with the patient and result sheet given to the patient on 01/01/19. ASSESSMENT: Probably benign, BI-RAD 3 RECOMMENDATION: Clinical management of both breasts. Manage on a clinical basis with regard to subcutaneous palpable region.
== END | disposition home or self-care (01) ==
LOC: RADMAMWWP 09:05
PROVIDERS: ATTEND Family Medicine
DX: N60.02 Solitary cyst of left breast (principal); L02.91 Cutaneous abscess, unspecified
CPT/HCPCS: 77066